=== PATIENT | male | born 1960 | race Caucasian/White ===

== ENCOUNTER → 2016-07-16 | Outpatient (CLI) | payer BC ==
[~2016-07-16] MED LIST: HCTZ 25MG TAB25 MG PO; LEVOXYL0.1 MG PO
== END ==
LOC: COL.RAD 08:45
DX: M25.562 Pain in left knee (principal); M17.12 Unilateral primary osteoarthritis, left knee; S83.242A Other tear of medial meniscus, current injury, left knee, initial encounter

== ENCOUNTER → 2020-08-18 | Outpatient (CLI) | payer BC ==
--- NOTE | 2020-08-14 08:58 | NUR ---
NO VOICE MAIL SET UP.
[~2020-08-18] VITALS: Ht 175.3 cm; Wt 78.0 kg
[~2020-08-18] MED LIST changes: +ADVIL200 MG PO; +NEURONTIN300 MG/CAP PO; +TYLENOL 500MG500 MG PO
[2020-08-18 13:50] VITALS: BP 172/90; PULSE 86
[2020-08-18 15:05] VITALS: BP 146/94; PULSE 76
== END ==
LOC: COL.RAD 13:30
DX: M50.30 Other cervical disc degeneration, unspecified cervical region (principal)
CPT/HCPCS: J1100

== ENCOUNTER → 2020-08-18 | Outpatient (CLI) | payer BC | LOC: COL.RAD 13:03 | DX: M50.30 Other cervical disc degeneration, unspecified cervical region (principal) ==

== ENCOUNTER 2020-12-29 14:06 | Day surgery (SDC) | payer BC ==
[~2020-12-29] VITALS: Ht 175.3 cm; Wt 77.5 kg
[2020-12-29] MEDS ORDERED: SYNTHROID0.088 MG/T PO (14:38)
[2020-12-29] MEDS ORDERED: FLOMAX 0.40.4 MG/CAP PO (14:38)
[2020-12-29 14:39] VITALS: BP 133/81; PULSE 75; TEMP 98.6
[2020-12-29 17:40] VITALS: BP 123/76; PULSE 64
--- NOTE | 2020-12-29 17:40 | NUR ---
Patient up from OR. Alert and oriented x 3. Spouse at bedside. Patient denies pain at this time. Spouse at bedside. Denies needs at this time.
[2020-12-29 17:55] VITALS: BP 134/89; PULSE 85
[2020-12-29 18:10] VITALS: BP 132/86; PULSE 58
[2020-12-29 18:25] VITALS: BP 121/76; PULSE 63
[2020-12-29 18:55] VITALS: BP 123/78; PULSE 72; TEMP 98.8
--- NOTE | 2020-12-29 19:20 | NUR ---
Discharge education provided to patient. Educated on increasing fluid intake and when to call provider. All questions answered. Patient voided approximatly 100 ml of blood tinged urine. Denies needs at this time. Patient out by wheelchair with surgical staff.
== END 2020-12-29 19:30 | disposition home or self-care (01) ==
LOC: SDCO 14:06 → SURG 17:56 → SDCO 19:30
DX: N20.1 Calculus of ureter (principal); N40.0 Benign prostatic hyperplasia without lower urinary tract symptoms; M50.30 Other cervical disc degeneration, unspecified cervical region; M51.36 Other intervertebral disc degeneration, lumbar region; I10 Essential (primary) hypertension; E03.9 Hypothyroidism, unspecified; M19.90 Unspecified osteoarthritis, unspecified site; G62.9 Polyneuropathy, unspecified; N30.00 Acute cystitis without hematuria; Z79.890 Hormone replacement therapy; Z79.899 Other long term (current) drug therapy
CPT/HCPCS: OP; C1769; J0690; J2704; J3010; J7120; Q9967

== ENCOUNTER 2023-08-08 12:42 | Day surgery (SDC) | payer BC ==
[~2023-08-08] VITALS: Ht 175.3 cm; Wt 70.8 kg
[~2023-08-08 12:42] MED LIST changes: +FLOMAX 0.40.4 MG/CAP PO; +Ondansetron 4 MG/2 ML VIAL IV PRN; +SYNTHROID0.088 MG/T PO
[2023-08-08] MEDS ORDERED: LR 1,000 ML IV ONE (13:00)
[2023-08-08] MEDS ORDERED: SYNTHROID0.1 MG/TAB PO (13:16)
[2023-08-08] MEDS ORDERED: MOBIC15 MG PO (13:17)
[2023-08-08] MEDS ORDERED: PRIL40 PO (13:17)
[2023-08-08] MEDS ORDERED: AMBIEN 5MG TABLE5 MG PO (13:18)
[2023-08-08] MEDS ORDERED: Lidocaine PF 2% (20 MG/ML) 5 ML VIAL ONE (13:38)
[2023-08-08 14:15] VITALS: BP 129/90; PULSE 80; TEMP 97.6
[2023-08-08 14:30] VITALS: BP 138/92; PULSE 84
[2023-08-08 14:40] VITALS: BP 119/98; PULSE 96; TEMP 97.6
[2023-08-08 14:45] VITALS: BP 138/89; PULSE 72
[2023-08-08 15:00] VITALS: BP 131/84; PULSE 80
--- NOTE | 2023-08-08 15:30 | NUR ---
1415 RETURNS TO ROOM 1 PER CART. AWAKE, ALERT. RSP UNLABORED. AMBULATES TO RECLINER WITH STANDBY ASSIST. DENIES NAUSEA, ABD/CHEST PAIN OR DYSPHAGIA. VITAL SIGNS OBTAINED. CALL LIGHT AT SIDE. IN ROOM 1430 TOLERATES PO SODA WITHOUT NAUSEA. SWALLOWS WITHOUT DIFFICULTY 1440 DISCHARGE INSTRUCTIONS REVIEWED. PATIENT VERBALIZES UNDERSTANDING. COPY PROVIDED IN DISCHARGE FOLDER 1455 CONVERSES WITH . AWAITING 1518 DR. BYERS HERE TO VISIT WITH PATIENT 1525 DRESSES SELF, THEN AMBULATES TO BATHROOM WITH STANDBY ASSIST
== END 2023-08-08 15:30 | disposition home or self-care (01) ==
LOC: SDCO 12:42
DX: K22.2 Esophageal obstruction (principal); R63.4 Abnormal weight loss; K21.9 Gastro-esophageal reflux disease without esophagitis; K29.50 Unspecified chronic gastritis without bleeding; D72.820 Lymphocytosis (symptomatic); Z12.11 Encounter for screening for malignant neoplasm of colon; Z79.899 Other long term (current) drug therapy
CPT/HCPCS: C1726; J2704; J7120